=== PATIENT | female | born 1960 | race Caucasian/White ===

== ENCOUNTER 2017-03-03 08:45 | Emergency (ER) | payer MEDICARE, MEDICAID ==
[~2017-03-03 08:45] MED LIST: AMBI10TA PO; AMIT100T6 PO; AMLO5TAB96 PO; ATOR20TA42 PO; CALTTAB5 PO; COMBIGAN OP; FENT50DI TD; HUMALOGP SQ; HYDR-2768; HYDR-3129 PO; LISI-366 PO; METO5TAB PO; PROT40TA PO; TAB-TAB PO
[2017-03-03 08:57] VITALS: BP 163/69; PULSE 79; RESP 20; TEMP 98.3; O2SAT 100
[2017-03-03] MEDS ORDERED: MYCO250C PO (09:06)
[2017-03-03] MEDS ORDERED: MAGN30TA PO (09:06)
[2017-03-03] MEDS ORDERED: SODIUM CHLOR 0.9% 1000 ML INJ 1,000 ML IV SCH (09:06)
[2017-03-03] MEDS ORDERED: HYDR-3583 PO (09:06)
[2017-03-03] MEDS ORDERED: ASPI81CH CHEW (09:06)
[2017-03-03] MEDS ORDERED: TACR1CAP PO (09:06)
[2017-03-03] MEDS ORDERED: PANT40TA3 PO (09:06)
[2017-03-03] MEDS ORDERED: MULT-120 PO (09:06)
[2017-03-03] MEDS ORDERED: ZOLP10TA3 PO (09:06)
[2017-03-03] MEDS ORDERED: COMB0.2S EACH EYE (09:06)
[2017-03-03] MEDS ORDERED: AMIT100T2 PO (09:06)
[2017-03-03] MEDS ORDERED: SIMV40TA PO (09:06)
[2017-03-03] MEDS ORDERED: PRED5TAB PO (09:06)
[2017-03-03] MEDS ORDERED: CALTTAB PO (09:06)
[2017-03-03] MEDS ORDERED: SULF1TAB23 PO (09:06)
[2017-03-03] MEDS ORDERED: CARV25TA PO (09:06)
[2017-03-03] MEDS ORDERED: SODIUM CHLORIDE 0.9% FLUSH 10 ML FLUSH IV FLUSH PRN (09:15)
[2017-03-03] MEDS ORDERED: HYDROmorphone HCL PF 1 MG/ML VIAL IV PUSH ONE (09:15)
[2017-03-03] MEDS ORDERED: METOCLOPRAMIDE HCL 10 MG/2 ML VIAL IV PUSH ONE ×2 (09:15→10:00)
[2017-03-03] MEDS ORDERED: diphenhydrAMINE HCL 50 MG/ML VIAL IV PUSH ONE ×2 (09:15→10:00)
--- NOTE | 2017-03-03 09:16 | PD ---
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 She states that she thinks her gastroparesis is acting up. The last episode was about 8 months ago, she states that she usually follows up with her GI doctor in [place], but is visiting the area currently. She and family states that the medication that works well for this issue is Dilaudid which physician's office and don't give fast enough. She denies any fevers, diarrhea, or any other symptoms. Modifying Factors: None Associated Signs & Symptoms: Nausea, vomiting, abdominal cramping pain Risk Factors: History of gastroparesis, pancreatic and renal transplant PFSH Past Medical History Autoimmune Disease: No Cancer: No High Cholesterol: Yes Chemotherapy: No Chest Pain: No Diabetes: Yes Patient Takes Glucophage: No Endocrine: No Gastrointestinal Disorders: Yes (GASTROPARESIS) Hypertension: Yes Immune Disorder: No Neurologic: No Psychiatric: No Radiation Therapy: No Sickle Cell Disease: No Thyroid Disease: No ?: Not Past Surgical History Abdominal Surgery: No Section: Yes (X 3) Cholecystectomy: Yes Ear Surgery: No Endocrine Surgery: No Eye Surgery: Yes (CATARACT LEFT EYE) Gynecologic Surgery: Yes ( SECTIONX4) Insulin Pump: No Joint Replacement: No Oral Surgery: No Thoracic Surgery: No Other Surgery: Yes (KIDNEY, PANCREAS TRANSPLANT) Social History Alcohol Use: No Tobacco Use: No Substance Use: No Allergies-Medications (Allergen,Severity, Reaction): Coded Allergies: Morphine (Verified Allergy, Unknown, 03/03/17) Reported Meds & Prescriptions Reported Meds & Active Scripts Active Reported Zolpidem (Zolpidem Tartrate) 10 Mg Tab 10 Mg PO HS PRN Amitriptyline (Amitriptyline HCl) 100 Mg Tab 100 Mg PO HS Simvastatin 40 Mg Tab 40 Mg PO HS Combigan Opth Drops (Brimonidine-Timolol Opth Drops) 0.2-0.5% Soln 1 Drop EACH EYE Q12HR Aspirin 81 Mg Chew 81 Mg CHEW DAILY Caltrate 600+D (Calcium Carbonate-Cholecalciferol) 600-800 Mg-Unit Tab 1 Tab PO BID Multivitamin Women (Multiple Vitamins W/ Minerals) 1 Tab Tab 1 Tab PO DAILY Prednisone 5 Mg Tab 5 Mg PO DAILY Hydrocodone-Acetaminophen 10-325 mg Tab 1 Tab PO Q6H PRN Magnesium Elemental (Magnesium) 30 Mg Tab 250 Mg PO DAILY Pantoprazole (Pantoprazole Sodium) 40 Mg Tab 40 Mg PO BID Sulfamethoxazole-Trimethoprim 800-160 Mg Tab 1 Tab PO BID Carvedilol 25 Mg Tab 25 Mg PO BID Mycophenolate (Mycophenolate Mofetil) 250 Mg Cap 360 Mg PO QID Tacrolimus 1 Mg Cap 2 Mg PO Q12H Review of Systems Except as stated in HPI: all other systems reviewed are Neg Physical Exam Narrative GENERAL: Middle age female patient who is currently in moderate distress, retching in the ER. Awake and oriented 3. SKIN: Focused skin assessment warm/dry. HEAD: Atraumatic. Normocephalic. EYES: Pupils equal and round. No scleral icterus. No injection or drainage. ENT: No nasal bleeding or discharge. Mucous membranes pink and moist. NECK: Trachea midline. No JVD. CARDIOVASCULAR: Regular rate and rhythm. No murmur appreciated. RESPIRATORY: No accessory muscle use. Clear to auscultation. Breath sounds equal bilaterally. GASTROINTESTINAL: Abdomen soft, diffuse abdominal tenderness with no point tenderness or guarding or rebound, nondistended. Hepatic and splenic margins not palpable. MUSCULOSKELETAL: No obvious deformities. No clubbing. No cyanosis. No edema. NEUROLOGICAL: Awake and alert. No obvious cranial nerve deficits. Motor grossly within normal limits. Normal speech. PSYCHIATRIC: Appropriate mood and affect; insight and judgment normal. Data Data Last Documented VS Vital Signs Date Time Temp Pulse Resp B/P Pulse Ox O2 Delivery O2 Flow Rate FiO2 03/03/17 10:51 76 20 131/61 96 Nasal Cannula 2 03/03/17 08:57 98.3 Orders Complete Blood Count With Diff (03/03/17 09:06) Comprehensive Metabolic Panel (03/03/17 09:06) Lipase (03/03/17 09:06) Urinalysis - C+S If Indicated (03/03/17 09:06) Iv Access Insert/Monitor (03/03/17 09:06) Ecg Monitoring (03/03/17 09:06) Oximetry (03/03/17 09:06) Sodium Chlor 0.9% 1000 Ml Inj (Ns 1000 M (03/03/17 09:06) Sodium Chloride 0.9% Flush (Ns Flush) (03/03/17 09:15) Metoclopramide Inj (Reglan Inj) (03/03/17 09:15) Diphenhydramine Inj (Benadryl Inj) (03/03/17 09:15) Abdomen, Flat & Upright (03/03/17 09:11) Hydromorphone Pf Inj (Dilaudid Pf Inj) (03/03/17 09:15) Ondansetron Inj (Zofran Inj) (03/03/17 09:30) Metoclopramide Inj (Reglan Inj) (03/03/17 10:00) Diphenhydramine Inj (Benadryl Inj) (03/03/17 10:00) Hydromorphone Pf Inj (Dilaudid Pf Inj) (03/03/17 10:00) Labs Laboratory Tests Test 03/03/17 03/03/17 09:20 10:50 White Blood Count 5.9 TH/MM3 Red Blood Count 4.16 MIL/MM3 Hemoglobin 12.0 GM/DL Hematocrit 35.8 % Mean Corpuscular Volume 85.9 FL Mean Corpuscular Hemoglobin 28.9 PG Mean Corpuscular Hemoglobin 33.6 % Concent Red Cell Distribution Width 12.1 % Platelet Count 201 TH/MM3 Mean Platelet Volume 8.2 FL Neutrophils (%) (Auto) 77.2 % Lymphocytes (%) (Auto) 10.5 % Monocytes (%) (Auto) 10.2 % Eosinophils (%) (Auto) 1.7 % Basophils (%) (Auto) 0.4 % Neutrophils # (Auto) 4.6 TH/MM3 Lymphocytes # (Auto) 0.6 TH/MM3 Monocytes # (Auto) 0.6 TH/MM3 Eosinophils # (Auto) 0.1 TH/MM3 Basophils # (Auto) 0.0 TH/MM3 CBC Comment DIFF FINAL Differential Comment Sodium Level 140 MEQ/L Potassium Level 4.5 MEQ/L Chloride Level 107 MEQ/L Carbon Dioxide Level 26.4 MEQ/L Anion Gap 7 MEQ/L Blood Urea Nitrogen 13 MG/DL Creatinine 0.79 MG/DL Estimat Glomerular Filtration 76 ML/MIN Rate Random Glucose 101 MG/DL Calcium Level 9.0 MG/DL Total Bilirubin 0.4 MG/DL Aspartate Amino Transf 31 U/L (AST/SGOT) Alanine Aminotransferase 29 U/L (ALT/SGPT) Alkaline Phosphatase 90 U/L Total Protein 6.6 GM/DL Albumin 3.2 GM/DL Lipase 168 U/L Urine Collection Type CLEAN CATCH Urine Color YELLOW Urine Turbidity CLEAR Urine pH 7.0 Urine Specific Jachin 1.024 Urine Protein NEG mg/dL Urine Glucose (UA) NEG mg/dL Urine Ketones NEG mg/dL Urine Occult Blood TRACE Urine Nitrite NEG Urine Bilirubin NEG Urine Leukocyte Esterase NEG Urine Squamous Epithelial 0-5 /hpf Cells Microscopic Urinalysis Comment CULT NOT INDICATED MDM Medical Decision Making Medical Screen Exam Complete: Yes Emergency Medical Condition: Yes Medical Record Reviewed: Yes Interpretation(s) Laboratory Tests Test 03/03/17 03/03/17 09:20 10:50 Neutrophils (%) (Auto) 77.2 % (16.0-70.0) Monocytes (%) (Auto) 10.2 % (0.0-8.0) Lymphocytes # (Auto) 0.6 TH/MM3 (1.0-4.8) Estimat Glomerular Filtration 76 ML/MIN (>89) Rate Albumin 3.2 GM/DL (3.4-5.0) Urine Occult Blood TRACE (NEG) Last 24 hours Impressions Abdomen X-Ray 03/03/17 0911 Signed Impressions: Service Date/Time: Friday, March 03, 2017 09:41 - CONCLUSION: Moderate stool in the colon especially the transverse colon. Deni Callahan MD Differential Diagnosis Nausea, vomiting, abdominal cramping painsgastroparesis versus obstruction versus gastroenteritis versus dehydration versus electrolyte abnormalities versus opiate withdrawals Narrative Course Patient was initially given IV fluids, Zofran, Dilaudid 0.5 mg in the ER. However, patient continues to moan due to discomfort and pain. Patient's sister states that the patient gets much larger doses of Dilaudid usually in order to control her issues. At this point, 2 mg of Dilaudid was also ordered for the patient for pain control. On reevaluation at 10:30 AM, patient is feeling much improved. Reevaluation of the abdomen shows a fairly benign abdomen. Lab work returned not showing significant leukocytosis, signs of metabolic issues or dehydration. Her vital signs remained stable in the ER. X-ray did not show any signs of obstruction or other signs of acute issues. At this point, I have talked to the patient regarding findings and patient states she is feeling much improved. Considering previous history of gastroparesis, I suspect gastroparesis in this case. I have talked to the patient regarding whether we should obtain further CT Scanning. Patient states that she is comfortable with deferring at this point. Other acute intra-abdominal processes cannot be ruled out but exam and lab work did not indicate any signs of other acute processes. My plan would be to release the patient with symptomatic relief or nausea and vomiting. Return for any worsening in symptoms as needed. The plan has discussed with her and she states understanding. Procedures Procedure Narrative Right external jugular IV accesspatient is placed in Trendelenburg position and right lateral neck area was cleaned and prepped with ChloraPrep, 20-gauge IV placed into the right EJ without issues. Area was covered with Tegaderm. Diagnosis Primary Impression: GASTROPARESIS Additional Impression: Abdominal pain Med/Other Pt SpecificInfo: Prescription(s) given Scripts Metoclopramide (Reglan)10 Mg Tab10 Mg PO QID PRN (NAUSEA OR VOMITING) #14 TAB Ref 0 Prov:Lizzy Casillas MD 03/03/17 Disposition: 01 DISCHARGE HOME Condition: Stable Lizzy Casillas MD Mar 03, 2017 09:16
[2017-03-03] MEDS ORDERED: ONDANSETRON HCL 4 MG/2 ML VIAL IM ONE (09:30)
[2017-03-03 09:31] VITALS: O2SAT 96
[2017-03-03 09:38] LABS: AUTOMATED NEUTROPHIL # 4.6 TH/MM3 (1.8-7.7); BASOPHIL % 0.4 % (0.0-2.0); EOSINOPHIL # 0.1 TH/MM3 (0-0.4); EOSINOPHIL % 1.7 % (0.0-4.0); HEMATOCRIT 35.8 % (35.0-46.0); HEMO FLAGS DIFF FINAL; LYMPH % 10.5 % (9.0-44.0); LYMPHOCYTE # 0.6 TH/MM3 (1.0-4.8); MEAN CELL VOLUME 85.9 FL (80.0-100.0); MEAN CORPUSCULAR HEMOGLOBIN 28.9 PG (27.0-34.0); MEAN CORPUSCULAR HGB CONC 33.6 % (32.0-36.0); MONO % 10.2 % (0.0-8.0); NEUT % 77.2 % (16.0-70.0); PLATELET COUNT 201 TH/MM3 (150-450); RED BLOOD COUNT 4.16 MIL/MM3 (4.00-5.30); RED CELL DISTRIBUTION WIDTH 12.1 % (11.6-17.2); WHITE BLOOD COUNT 5.9 TH/MM3 (4.0-11.0)
[2017-03-03 09:51] LABS: BICARBONATE 26.4 MEQ/L (21.0-32.0); BLOOD UREA NITROGEN 13 MG/DL (7-18)
[2017-03-03 09:54] LABS: ALT (GPT) 29 U/L (10-53); AST (GOT) 31 U/L (15-37); GLOMERULAR FILTRATION RATE 76 ML/MIN (>89)
[2017-03-03 09:55] LABS: ANION GAP 7 MEQ/L (5-15); CHLORIDE 107 MEQ/L (98-107); POTASSIUM 4.5 MEQ/L (3.5-5.1); SODIUM (NA) 140 MEQ/L (136-145)
[2017-03-03 09:59] LABS: TOTAL BILIRUBIN ADULT 0.4 MG/DL (0.2-1.0)
[2017-03-03] MEDS ORDERED: HYDROmorphone HCL PF 2 MG/ML VIAL IV PUSH ONE (10:00)
[2017-03-03 10:01] VITALS: BP 151/76; PULSE 85; RESP 20; O2SAT 100
[2017-03-03 10:01] LABS: ALKALINE PHOSPHATASE 90 U/L (45-117)
--- NOTE | 2017-03-03 10:09 | RADHPO ---
EXAM DATE/TIME: 03/03/2017 09:41 [facility] COMPARISON: ABDOMEN FLAT & UPRIGHT, November 05, 2012, 9:36. INDICATIONS : abdomen pain and vomiting today MEDICAL HISTORY : None. SURGICAL HISTORY : Kidney and pancreas transplant ENCOUNTER: Initial ACUITY: 1 day PAIN SCORE: 10/10 LOCATION: Bilateral abdomen FINDINGS: Supine and upright views of the abdomen were performed. The abdominal bowel gas pattern is normal. No air fluid levels are seen. There is a moderate amount of stool especially in the transverse colon . Calcifications are seen in the left pelvis likely related to phleboliths. Vascular calcifications a re seen in the right lower quadrant. There is degenerative change of the lower lumbar spine. No evide nce of free intraperitoneal gas. Clips are seen in the right upper quadrant. CONCLUSION: Moderate stool in the colon especially the transverse colon. Deni Callahan MD on March 03, 2017 at 10:05 Board Certified Radiologist. This report was verified electronically.
[2017-03-03 10:51] VITALS: BP 131/61; PULSE 76; RESP 20; O2SAT 96
[2017-03-03 11:04] LABS: BLOOD, URINE TRACE (NEG); GLUCOSE,URINE NEG (NEG); KETONE, URINE NEG (NEG); NITRITE,URINE NEG (NEG)
[2017-03-03 11:10] LABS: COMMENT (UR) CULT NOT INDICATED; CULTURE IF INDICATED CULT NOT INDICATED; METHOD OF COLLECTION CLEAN CATCH; SQUAMOUS EPITHELIAL CELL URINE 0-5 /hpf (0-5); URINE COLOR YELLOW (YELLW/STRAW)
[2017-03-03] MEDS ORDERED: REGL10TA5 PO (11:19)
== END 2017-03-03 11:34 | disposition home or self-care (01) ==
LOC: PHED 08:45
DX: K31.84 Gastroparesis (principal); R10.9 Unspecified abdominal pain; E11.9 Type 2 diabetes mellitus without complications; E78.00 Pure hypercholesterolemia, unspecified; I10 Essential (primary) hypertension; Z94.0 Kidney transplant status; Z94.83 Pancreas transplant status
CPT/HCPCS: 74020; 80053; 81001; 83690; 85025; 96361; 96372; 96374; 96375; 96376; 99284; J1170; J1200; J2405; J2765; J7030

== ENCOUNTER 2017-03-06 10:50 | Emergency (ER) | payer MEDICARE, MEDICAID ==
[~2017-03-06] VITALS: Ht 154.9 cm; Wt 81.0 kg
[~2017-03-06 10:50] MED LIST changes: -AMBI10TA PO; +AMIT100T2 PO; -AMIT100T6 PO; -AMLO5TAB96 PO; +ASPI81CH CHEW; -ATOR20TA42 PO; +CALTTAB PO; -CALTTAB5 PO; +CARV25TA PO; +COMB0.2S EACH EYE; -COMBIGAN OP; -FENT50DI TD; -HUMALOGP SQ; -HYDR-2768; -HYDR-3129 PO; +HYDR-3583 PO; -LISI-366 PO; +MAGN30TA PO; -METO5TAB PO; +MULT-120 PO; +MYCO250C PO; +PANT40TA3 PO; +PRED5TAB PO; -PROT40TA PO; +REGL10TA5 PO; +SIMV40TA PO; +SULF1TAB23 PO; -TAB-TAB PO; +TACR1CAP PO; +ZOLP10TA3 PO
[2017-03-06 10:54] VITALS: BP 154/87; PULSE 79; RESP 18; TEMP 98.4; O2SAT 98
[2017-03-06] MEDS ORDERED: SODIUM CHLOR 0.9% 1000 ML INJ 1,000 ML IV SCH (11:10)
[2017-03-06] MEDS ORDERED: FAMOTIDINE 20 MG/2 ML VIAL IV PUSH ONE (11:15)
[2017-03-06] MEDS ORDERED: SODIUM CHLORIDE 0.9% FLUSH 10 ML FLUSH IV FLUSH PRN (11:15)
[2017-03-06] MEDS ORDERED: ONDANSETRON HCL 4 MG/2 ML VIAL IVP ONE (11:15)
[2017-03-06] MEDS ORDERED: HYDROmorphone HCL PF 2 MG/ML VIAL IVS ONE (11:15)
--- NOTE | 2017-03-06 11:20 | PD ---
HPI Chief Complaint: Abdominal Pain Time Seen by Provider: 11:04 Travel History International Travel<30 days: No Contact w/Intl Traveler<30days: No Traveled to known affect area: No History of Present Illness HPI Patient is a 56-year-old female with history of diabetes, gastroparesis, history of pancreatic and renal transplant currently on Tacrolimus 2mg BID, presents to ER for evaluation of "gastroparesis pain." Patient reports that ever since her transplant surgery, she has developed gastroparesis. Reports that when she has these "flair up," only high dose dilaudid helps with her symptoms. Patient reports that she usually gets gastroporesis pains every 8 months and needs to be treated with high dose pain medications which usually resolves her symptoms. Patient reports that she was seen at this emergency room 3 days ago with similar symptoms. Patient was given 2 mg of IV Dilaudid, reports that after she was given his pain medication, her symptoms went away. Patient reports that she woke up this morning around 8 AM with intractable nausea and vomiting. Patient reports that symptoms are similar to her gastroparesis abdominal pain. Patient reports that she thinks that she may have been something that irritated her stomach yesterday as she spent the day at [facility]. Patient denies any fevers or chills. Patient denies any constipation or diarrhea. Patient reports that her pain is similar to her previous episodes. Patient refusing CT imaging her abdomen pelvis as patient reports that her pain is chronic in nature. PFSH Past Medical History Autoimmune Disease: No Cancer: No High Cholesterol: Yes Chemotherapy: No Chest Pain: No Diabetes: Yes Patient Takes Glucophage: Yes Endocrine: No Gastrointestinal Disorders: Yes (GASTROPARESIS) Hypertension: Yes Immune Disorder: No Neurologic: No Psychiatric: No Radiation Therapy: No Sickle Cell Disease: No Thyroid Disease: No Tetanus Vaccination: < 5 Years Influenza Vaccination: Yes ?: Not Past Surgical History Abdominal Surgery: No Section: Yes (X 3) Cholecystectomy: Yes Ear Surgery: No Endocrine Surgery: No Eye Surgery: Yes (CATARACT LEFT EYE) Gynecologic Surgery: Yes ( SECTIONX4) Insulin Pump: No Joint Replacement: No Oral Surgery: No Thoracic Surgery: No Other Surgery: Yes (KIDNEY, PANCREAS TRANSPLANT) Social History Alcohol Use: No Tobacco Use: No Substance Use: No Allergies-Medications (Allergen,Severity, Reaction): Coded Allergies: Morphine (Verified Allergy, Unknown, 03/06/17) Reported Meds & Prescriptions Reported Meds & Active Scripts Active Reglan (Metoclopramide HCl) 10 Mg Tab 10 Mg PO QID PRN Reported Zolpidem (Zolpidem Tartrate) 10 Mg Tab 10 Mg PO HS PRN Amitriptyline (Amitriptyline HCl) 100 Mg Tab 100 Mg PO HS Simvastatin 40 Mg Tab 40 Mg PO HS Combigan Opth Drops (Brimonidine-Timolol Opth Drops) 0.2-0.5% Soln 1 Drop EACH EYE Q12HR Aspirin 81 Mg Chew 81 Mg CHEW DAILY Caltrate 600+D (Calcium Carbonate-Cholecalciferol) 600-800 Mg-Unit Tab 1 Tab PO BID Multivitamin Women (Multiple Vitamins W/ Minerals) 1 Tab Tab 1 Tab PO DAILY Prednisone 5 Mg Tab 5 Mg PO DAILY Hydrocodone-Acetaminophen 10-325 mg Tab 1 Tab PO Q6H PRN Magnesium Elemental (Magnesium) 30 Mg Tab 250 Mg PO DAILY Pantoprazole (Pantoprazole Sodium) 40 Mg Tab 40 Mg PO BID Sulfamethoxazole-Trimethoprim 800-160 Mg Tab 1 Tab PO BID Carvedilol 25 Mg Tab 25 Mg PO BID Mycophenolate (Mycophenolate Mofetil) 250 Mg Cap 360 Mg PO QID Tacrolimus 1 Mg Cap 2 Mg PO Q12H Review of Systems General / Constitutional: No: Fever, Chills Eyes: No: Visual changes HENT: No: Headaches Cardiovascular: No: Chest Pain or Discomfort Respiratory: No: Shortness of Breath Gastrointestinal: Positive: Nausea, Vomiting, Abdominal Pain, No: Diarrhea Genitourinary: No: Dysuria Musculoskeletal: No: Pain Skin: No Rash Neurologic: No: Weakness Psychiatric: No: Depression Endocrine: No: Polydipsia Hematologic/Lymphatic: No: Easy Bruising Physical Exam Narrative GENERAL: moderate distress, patient vomiting.retching on evaluation, SKIN: Focused skin assessment warm/dry. HEAD: Atraumatic. Normocephalic. EYES: Pupils equal and round. No scleral icterus. No injection or drainage. ENT: No nasal bleeding or discharge. Mucous membranes pink and moist. NECK: Trachea midline. No JVD. CARDIOVASCULAR: Regular rate and rhythm. No murmur appreciated. RESPIRATORY: No accessory muscle use. Clear to auscultation. Breath sounds equal bilaterally. GASTROINTESTINAL: Abdomen soft, non-tender, nondistended. Hepatic and splenic margins not palpable. MUSCULOSKELETAL: No obvious deformities. No clubbing. No cyanosis. No edema. NEUROLOGICAL: Awake and alert. No obvious cranial nerve deficits. Motor grossly within normal limits. Normal speech. PSYCHIATRIC: Appropriate mood and affect; insight and judgment normal. Data Data Last Documented VS Vital Signs Date Time Temp Pulse Resp B/P Pulse Ox O2 Delivery O2 Flow Rate FiO2 03/06/17 12:30 86 14 150/65 97 Room Air 03/06/17 10:54 98.4 Orders Complete Blood Count With Diff (03/06/17 11:10) Comprehensive Metabolic Panel (03/06/17 11:10) Lipase (03/06/17 11:10) Prothrombin Time / Inr (Pt) (03/06/17 11:10) Act Partial Throm Time (Ptt) (03/06/17 11:10) Iv Access Insert/Monitor (03/06/17 11:10) Ecg Monitoring (03/06/17 11:10) Oximetry (03/06/17 11:10) Hydromorphone Pf Inj (Dilaudid Pf Inj) (03/06/17 11:15) Ondansetron Inj (Zofran Inj) (03/06/17 11:15) Sodium Chlor 0.9% 1000 Ml Inj (Ns 1000 M (03/06/17 11:10) Sodium Chloride 0.9% Flush (Ns Flush) (03/06/17 11:15) Famotidine Inj (Pepcid Inj) (03/06/17 11:15) Abdomen, Kub Only (03/06/17 11:10) Labs Laboratory Tests Test 03/06/17 03/06/17 11:20 11:25 White Blood Count 8.3 TH/MM3 Red Blood Count 4.61 MIL/MM3 Hemoglobin 13.2 GM/DL Hematocrit 40.1 % Mean Corpuscular Volume 87.0 FL Mean Corpuscular Hemoglobin 28.7 PG Mean Corpuscular Hemoglobin 32.9 % Concent Red Cell Distribution Width 12.8 % Platelet Count 205 TH/MM3 Mean Platelet Volume 8.7 FL Neutrophils (%) (Auto) 81.8 % Lymphocytes (%) (Auto) 11.4 % Monocytes (%) (Auto) 5.9 % Eosinophils (%) (Auto) 0.6 % Basophils (%) (Auto) 0.3 % Neutrophils # (Auto) 6.9 TH/MM3 Lymphocytes # (Auto) 0.9 TH/MM3 Monocytes # (Auto) 0.5 TH/MM3 Eosinophils # (Auto) 0.0 TH/MM3 Basophils # (Auto) 0.0 TH/MM3 CBC Comment DIFF FINAL Differential Comment Sodium Level 141 MEQ/L Potassium Level 4.4 MEQ/L Chloride Level 107 MEQ/L Carbon Dioxide Level 26.4 MEQ/L Anion Gap 8 MEQ/L Blood Urea Nitrogen 11 MG/DL Creatinine 0.92 MG/DL Estimat Glomerular Filtration 64 ML/MIN Rate Random Glucose 107 MG/DL Calcium Level 9.3 MG/DL Total Bilirubin 0.3 MG/DL Aspartate Amino Transf 28 U/L (AST/SGOT) Alanine Aminotransferase 31 U/L (ALT/SGPT) Alkaline Phosphatase 106 U/L Total Protein 7.1 GM/DL Albumin 3.6 GM/DL Lipase 167 U/L Prothrombin Time 11.1 SEC Prothromb Time International 1.0 RATIO Ratio Activated Partial 25.9 SEC Thromboplast Time MDM Medical Decision Making Medical Screen Exam Complete: Yes Emergency Medical Condition: Yes Interpretation(s) Vital Signs Date Time Temp Pulse Resp B/P Pulse Ox O2 Delivery O2 Flow Rate FiO2 03/06/17 10:54 98.4 79 18 154/87 98 Differential Diagnosis Gastroparesis, cholecystitis, viral infection, gastroenteritis, UTI, small bowel obstruction, electrolyte abnormalities, opiate withdrawal. Narrative Course Patient is a 56-year-old female who presents to emergency room with complaints of gastroparesis flareup. Patient reports that she woke up around 8 AM with intractable nausea, vomiting. Patient reports that symptoms are similar to her normal gastroparesis pain. Patient requesting high dose pain medications and IVF at this time for symptomatic relief. Patient was placed on monitoring manager. Lab work and xray of abdomen ordered. Vital Signs Date Time Temp Pulse Resp B/P Pulse Ox O2 Delivery O2 Flow Rate FiO2 03/06/17 12:01 16 03/06/17 11:35 96 Room Air 03/06/17 10:54 98.4 79 18 154/87 98 CBC & BMP Diagram 03/06/17 11:20 Patient resting on stretcher comfortable and in no acute distress. Patient reports that she is feeling much better at this time. Plan to discharge patient to home with outpatient referrals. xray of abdomen: interval improvemnt in bowel gas patter with mild decrease in stool Patient reports that she has complete resolution of symptoms at this time.. patient refusing further imaging at this time and further workup as she has complete resolution of symptoms. Patient will follow up with pcp and will return to ER as needed. Signs and symptoms of when to return to ER reviewed with patient in detail. Signs and symptoms of acute abdomen reviewed with patient and her family member in detail. Procedures Procedure Narrative Right sided external jugular IV access: Patient was placed in Trendelenburg position and right lateral neck was cleaned and prepped using ChloraPrep. A 20-gauge IV needle was placed to the right external jugular vein after first attempt. Area was dressed and covered with Tegaderm. Patient tolerated procedure well. Diagnosis Primary Impression: Abdominal pain Qualified Code: R10.84 - Generalized abdominal pain Additional Impression: Gastroparesis Patient Instructions: Narcotic given in the ED, General Instructions Additional Instructions: Please return to ER as needed Please follow up with your primary care doctor as well as your urology physician as soon as possible Disposition: 01 DISCHARGE HOME Condition: Stable Yeimi Santana DO Mar 06, 2017 11:20 Yeimi Santana DO Mar 06, 2017 11:20
[2017-03-06 11:26] LABS: AUTOMATED NEUTROPHIL # 6.9 TH/MM3 (1.8-7.7); BASOPHIL % 0.3 % (0.0-2.0); EOSINOPHIL % 0.6 % (0.0-4.0); HEMATOCRIT 40.1 % (35.0-46.0); HEMO FLAGS DIFF FINAL; LYMPH % 11.4 % (9.0-44.0); LYMPHOCYTE # 0.9 TH/MM3 (1.0-4.8); MEAN CORPUSCULAR HEMOGLOBIN 28.7 PG (27.0-34.0); MEAN CORPUSCULAR HGB CONC 32.9 % (32.0-36.0); MONO % 5.9 % (0.0-8.0); NEUT % 81.8 % (16.0-70.0); PLATELET COUNT 205 TH/MM3 (150-450); RED BLOOD COUNT 4.61 MIL/MM3 (4.00-5.30); RED CELL DISTRIBUTION WIDTH 12.8 % (11.6-17.2); WHITE BLOOD COUNT 8.3 TH/MM3 (4.0-11.0)
[2017-03-06 11:35] VITALS: O2SAT 96
[2017-03-06 11:39] LABS: CHLORIDE 107 MEQ/L (98-107); POTASSIUM 4.4 MEQ/L (3.5-5.1); SODIUM (NA) 141 MEQ/L (136-145)
[2017-03-06 11:43] LABS: ANION GAP 8 MEQ/L (5-15); BICARBONATE 26.4 MEQ/L (21.0-32.0); BLOOD UREA NITROGEN 11 MG/DL (7-18)
[2017-03-06 11:43] LABS: APTT (PATIENT) 25.9 SEC (24.3-30.1); PROTHROMBIN TIME - PATIENT 11.1 SEC (9.8-11.6)
[2017-03-06 11:46] LABS: ALT (GPT) 31 U/L (10-53); AST (GOT) 28 U/L (15-37); GLOMERULAR FILTRATION RATE 64 ML/MIN (>89)
[2017-03-06 11:47] LABS: TOTAL BILIRUBIN ADULT 0.3 MG/DL (0.2-1.0)
[2017-03-06 11:48] LABS: ALKALINE PHOSPHATASE 106 U/L (45-117)
--- NOTE | 2017-03-06 12:27 | RADHPO ---
EXAM DATE/TIME: 03/06/2017 11:42 [facility] COMPARISON: ABDOMEN FLAT & UPRIGHT, March 03, 2017, 9:41. INDICATIONS : Reoccurring abdominal pain and vomiting for 3 days. MEDICAL HISTORY : Hypertension. Diabetes mellitus type II. Gastroparesis. SURGICAL HISTORY : Cholecystectomy. section. Kidney/ pancreas transplant. ENCOUNTER: [facility] ACUITY: 3 days PAIN SCORE: 8/10 LOCATION: Abdomen. FINDINGS: Supine view of the abdomen was performed. There has been interval decrease in the amount of stool pre sent with moderate residual in the transverse colon. There are multiple calcified phleboliths again n oted in the pelvis. The patient is status post cholecystectomy.. No abnormal masses, calcifications, or organomegaly is seen. The osseous structures are unremarkable. CONCLUSION: Interval improvement in bowel gas pattern with mild decrease in stool. Cj Guido MD on March 06, 2017 at 12:24 Board Certified Radiologist. This report was verified electronically.
[2017-03-06 12:30] VITALS: BP 150/65; PULSE 86; RESP 14; O2SAT 97
[2017-03-06] MEDS ORDERED: REGL10TA5 PO (18:23)
== END 2017-03-06 13:00 | disposition home or self-care (01) ==
LOC: PHED 10:50
DX: R10.84 Generalized abdominal pain (principal); K31.84 Gastroparesis; E78.00 Pure hypercholesterolemia, unspecified; E11.9 Type 2 diabetes mellitus without complications; I10 Essential (primary) hypertension; Z79.84 Long term (current) use of oral hypoglycemic drugs; Z94.0 Kidney transplant status; Z94.83 Pancreas transplant status
CPT/HCPCS: 74000; 80053; 83690; 85025; 85610; 85730; 96361; 96374; 96375; 99284; J1170; J2405; J7030

== ENCOUNTER 2017-03-06 15:50 | Emergency (ER) | payer MEDICARE, MEDICAID ==
[~2017-03-06] VITALS: Ht 154.9 cm; Wt 82.0 kg
[2017-03-06 15:51] VITALS: PULSE 88; RESP 22; TEMP 97.5; O2SAT 98
[2017-03-06 16:10] VITALS: RESP 15; O2SAT 97
[2017-03-06] MEDS ORDERED: SODIUM CHLOR 0.9% 1000 ML INJ 1,000 ML IV SCH (16:16)
--- NOTE | 2017-03-06 16:23 | PD ---
HPI Chief Complaint: Abdominal Pain Time Seen by Provider: 16:18 Travel History International Travel<30 days: No Contact w/Intl Traveler<30days: No Traveled to known affect area: No History of Present Illness HPI Is a 56-year-old female with a history of renal transplant and gastroparesis presents to the emergency department for evaluation of nausea vomiting and "gastroparesis pain. She is accompanied by her sister who gives the majority of the history. On arrival the patient is grunting appears uncomfortable. Patient was here earlier today and was seen by Dr. Santana and was given multiple medications including Dilaudid. Dr. Santana and recommended the patient have a CAT scan at that time but the patient had refused. Patient also had an visit earlier in this week at which time she was also given Dilaudid. In fact the sister says to me that the only thing that works for the patient is 2 mg Dilaudid IV. She states that usually she has about 1 flare a year but because they're visiting here from out of town to think that she ate something strange when they were in [place] the other day. She states typically 2 mg of Dilaudid IV hold her for a year. PFSH Past Medical History Autoimmune Disease: No Cancer: No High Cholesterol: Yes Chemotherapy: No Chest Pain: No Diabetes: Yes Endocrine: No Gastrointestinal Disorders: Yes (GASTROPARESIS) Hypertension: Yes Immune Disorder: No Neurologic: No Psychiatric: No Radiation Therapy: No Sickle Cell Disease: No Thyroid Disease: No Past Surgical History Abdominal Surgery: No Section: Yes (X 3) Cholecystectomy: Yes Ear Surgery: No Endocrine Surgery: No Eye Surgery: Yes (CATARACT LEFT EYE) Gynecologic Surgery: Yes ( SECTIONX4) Insulin Pump: No Joint Replacement: No Oral Surgery: No Thoracic Surgery: No Other Surgery: Yes (KIDNEY, PANCREAS TRANSPLANT) Social History Alcohol Use: No Tobacco Use: No Substance Use: No Allergies-Medications (Allergen,Severity, Reaction): Coded Allergies: Morphine (Verified Allergy, Unknown, 03/06/17) Reported Meds & Prescriptions Reported Meds & Active Scripts Active Reglan (Metoclopramide HCl) 10 Mg Tab 10 Mg PO QID PRN Reglan (Metoclopramide HCl) 10 Mg Tab 10 Mg PO QID PRN Reported Zolpidem (Zolpidem Tartrate) 10 Mg Tab 10 Mg PO HS PRN Amitriptyline (Amitriptyline HCl) 100 Mg Tab 100 Mg PO HS Simvastatin 40 Mg Tab 40 Mg PO HS Combigan Opth Drops (Brimonidine-Timolol Opth Drops) 0.2-0.5% Soln 1 Drop EACH EYE Q12HR Aspirin 81 Mg Chew 81 Mg CHEW DAILY Caltrate 600+D (Calcium Carbonate-Cholecalciferol) 600-800 Mg-Unit Tab 1 Tab PO BID Multivitamin Women (Multiple Vitamins W/ Minerals) 1 Tab Tab 1 Tab PO DAILY Prednisone 5 Mg Tab 5 Mg PO DAILY Hydrocodone-Acetaminophen 10-325 mg Tab 1 Tab PO Q6H PRN Magnesium Elemental (Magnesium) 30 Mg Tab 250 Mg PO DAILY Pantoprazole (Pantoprazole Sodium) 40 Mg Tab 40 Mg PO BID Sulfamethoxazole-Trimethoprim 800-160 Mg Tab 1 Tab PO BID Carvedilol 25 Mg Tab 25 Mg PO BID Mycophenolate (Mycophenolate Mofetil) 250 Mg Cap 360 Mg PO QID Tacrolimus 1 Mg Cap 2 Mg PO Q12H Review of Systems Except as stated in HPI: all other systems reviewed are Neg Physical Exam Narrative GENERAL: wd wn obese moaning in stretcher SKIN: Warm and dry. HEAD: Atraumatic. Normocephalic. EYES: Pupils equal and round. No scleral icterus. No injection or drainage. ENT: No nasal bleeding or discharge. Mucous membranes pink and moist. NECK: Trachea midline. No JVD. CARDIOVASCULAR: Regular rate and rhythm. RESPIRATORY: No accessory muscle use. Clear to auscultation. Breath sounds equal bilaterally. GASTROINTESTINAL: Abdomen soft, non-tender, nondistended. Hepatic and splenic margins not palpable. benign abdomen. MUSCULOSKELETAL: Extremities without clubbing, cyanosis, or edema. No obvious deformities. NEUROLOGICAL: Awake and alert. No obvious cranial nerve deficits. Motor grossly within normal limits. Five out of 5 muscle strength in the arms and legs. Normal speech. PSYCHIATRIC: Appropriate mood and affect; insight and judgment normal. Data Data Last Documented VS Vital Signs Date Time Temp Pulse Resp B/P Pulse Ox O2 Delivery O2 Flow Rate FiO2 03/06/17 18:33 71 15 134/79 97 03/06/17 15:51 97.5 Orders Complete Blood Count With Diff (03/06/17 16:16) Comprehensive Metabolic Panel (03/06/17 16:16) Lipase (03/06/17 16:16) Lactic Acid (03/06/17 16:16) Iv Access Insert/Monitor (03/06/17 16:16) Ecg Monitoring (03/06/17 16:16) Oximetry (03/06/17 16:16) Sodium Chlor 0.9% 1000 Ml Inj (Ns 1000 M (03/06/17 16:16) Sodium Chloride 0.9% Flush (Ns Flush) (03/06/17 16:30) Ketorolac Inj (Toradol Inj) (03/06/17 16:30) Metoclopramide Inj (Reglan Inj) (03/06/17 16:30) Diphenhydramine Inj (Benadryl Inj) (03/06/17 16:30) Ct Abd/Pel W/O Iv Contrast (03/06/17 ) Hydromorphone Pf Inj (Dilaudid Pf Inj) (03/06/17 18:00) Labs Laboratory Tests Test 03/06/17 16:35 White Blood Count 5.7 TH/MM3 Red Blood Count 4.26 MIL/MM3 Hemoglobin 12.0 GM/DL Hematocrit 36.5 % Mean Corpuscular Volume 85.5 FL Mean Corpuscular Hemoglobin 28.2 PG Mean Corpuscular Hemoglobin 32.9 % Concent Red Cell Distribution Width 12.6 % Platelet Count 203 TH/MM3 Mean Platelet Volume 8.6 FL Neutrophils (%) (Auto) 85.0 % Lymphocytes (%) (Auto) 11.4 % Monocytes (%) (Auto) 2.8 % Eosinophils (%) (Auto) 0.0 % Basophils (%) (Auto) 0.8 % Neutrophils # (Auto) 4.8 TH/MM3 Lymphocytes # (Auto) 0.7 TH/MM3 Monocytes # (Auto) 0.2 TH/MM3 Eosinophils # (Auto) 0.0 TH/MM3 Basophils # (Auto) 0.0 TH/MM3 CBC Comment DIFF FINAL Differential Comment Sodium Level 138 MEQ/L Potassium Level 4.5 MEQ/L Chloride Level 104 MEQ/L Carbon Dioxide Level 25.9 MEQ/L Anion Gap 8 MEQ/L Blood Urea Nitrogen 9 MG/DL Creatinine 0.82 MG/DL Estimat Glomerular Filtration 73 ML/MIN Rate Random Glucose 125 MG/DL Lactic Acid Level 0.9 mmol/L Calcium Level 8.8 MG/DL Total Bilirubin 0.4 MG/DL Aspartate Amino Transf 36 U/L (AST/SGOT) Alanine Aminotransferase 31 U/L (ALT/SGPT) Alkaline Phosphatase 95 U/L Total Protein 6.8 GM/DL Albumin 3.3 GM/DL Lipase 122 U/L MDM Medical Decision Making Medical Screen Exam Complete: Yes Emergency Medical Condition: Yes Differential Diagnosis Abdominal pain, gastroparesis, kidney failure, electrolyte abnormality, Narrative Course Patient was roomed in the emergency department, she is grunting and appears mildly uncomfortable. Review of her records show that her labs earlier today were within normal limits. She did agree to a CAT scan without IV contrast given a history of kidney transplant. Patient was given Reglan as well as Benadryl normal saline. She has not had any emesis in the emergency department. She has waxing and waning periods of grunting. Patient's sister reports the nursing desk several times stating that the only thing that worked for the patient is IV Dilaudid. I counseled the patient and her sister multiple times that my impression of this patient's returning to the ER is that Dilaudid is making her worse. Her sister insists that the Dilaudid will make her better and that she will be a different person. I recommend that even if the patient get a dose of IV Dilaudid that she be admitted to the hospital as this may just mask the pain. The daughter and the patient are extremely reluctant as a visiting on vacation and her son is leaving tomorrow and the patient is supposed to leave the day afterwards. Even though I discussed that the Dilaudid is known to make gastroparesis worse sister is insisting that I give a dose. Because the pain is severe according to the patient, a Dose of IV Dilaudid was ordered. immediately following dose of dilaudid the patients pain is relieved. i still recommended that she be admitted for intractable abdominal pain but they declined. a formal ama paper was signed ". they stated they lost previous reglan script and one was wrotten for them. they were welcomed to return at any time. Procedures Procedure Narrative Ultrasound-guided IV: 20-gauge was inserted under ultrasound guidance into a deep vein on the right forearm just distal to the antecubital fossa. dark red blood. This passed off to nursing to secure an draw blood. Diagnosis Primary Impression: Abdominal pain Qualified Code: R10.9 - Abdominal pain, unspecified location Additional Instructions: Follow-up with your regular physician as soon as possible. Recommended avoiding opiate pain medications. If you're pain returns she may return to the emergency Department at a time for another evaluation. Med/Other Pt SpecificInfo: Prescription(s) given Scripts Metoclopramide (Reglan)10 Mg Tab10 Mg PO QID PRN (NAUSEA) #14 TAB Ref 0 Prov:Darin Casanova MD 03/06/17 Disposition: 07 AGAINST MEDICAL ADVICE Condition: Stable Darin Casanova MD Mar 06, 2017 16:23
[2017-03-06] MEDS ORDERED: diphenhydrAMINE HCL 50 MG/ML VIAL IV PUSH ONE (16:30)
[2017-03-06] MEDS ORDERED: SODIUM CHLORIDE 0.9% FLUSH 10 ML FLUSH IV FLUSH PRN (16:30)
[2017-03-06] MEDS ORDERED: METOCLOPRAMIDE HCL 10 MG/2 ML VIAL IV PUSH ONE (16:30)
[2017-03-06] MEDS ORDERED: KETOROLAC TROMETHAMINE 30 MG/ML (IVP) VIAL IVP ONE (16:30)
[2017-03-06 16:46] LABS: AUTOMATED NEUTROPHIL # 4.8 TH/MM3 (1.8-7.7); BASOPHIL % 0.8 % (0.0-2.0); HEMATOCRIT 36.5 % (35.0-46.0); HEMO FLAGS DIFF FINAL; LYMPH % 11.4 % (9.0-44.0); LYMPHOCYTE # 0.7 TH/MM3 (1.0-4.8); MEAN CELL VOLUME 85.5 FL (80.0-100.0); MEAN CORPUSCULAR HEMOGLOBIN 28.2 PG (27.0-34.0); MEAN CORPUSCULAR HGB CONC 32.9 % (32.0-36.0); MONO % 2.8 % (0.0-8.0); PLATELET COUNT 203 TH/MM3 (150-450); RED BLOOD COUNT 4.26 MIL/MM3 (4.00-5.30); RED CELL DISTRIBUTION WIDTH 12.6 % (11.6-17.2); WHITE BLOOD COUNT 5.7 TH/MM3 (4.0-11.0)
[2017-03-06 16:54] LABS: CHLORIDE 104 MEQ/L (98-107); POTASSIUM 4.5 MEQ/L (3.5-5.1); SODIUM (NA) 138 MEQ/L (136-145)
[2017-03-06 16:58] LABS: ANION GAP 8 MEQ/L (5-15); BICARBONATE 25.9 MEQ/L (21.0-32.0); BLOOD UREA NITROGEN 9 MG/DL (7-18)
[2017-03-06 17:01] LABS: ALT (GPT) 31 U/L (10-53); AST (GOT) 36 U/L (15-37); GLOMERULAR FILTRATION RATE 73 ML/MIN (>89)
[2017-03-06 17:03] LABS: TOTAL BILIRUBIN ADULT 0.4 MG/DL (0.2-1.0)
[2017-03-06 17:04] LABS: ALKALINE PHOSPHATASE 95 U/L (45-117)
--- NOTE | 2017-03-06 17:27 | RADHPO ---
EXAM DATE/TIME: 03/06/2017 16:48 [facility] COMPARISON: No previous studies available for comparison. INDICATIONS : Severe abdominal pain with history of gastroparesis. ORAL CONTRAST: No oral contrast ingested. RADIATION DOSE: 18.95 CTDIvol (mGy) MEDICAL HISTORY : Gastroparesis. Hypertension. Diabetes, renal failure SURGICAL HISTORY : Renal transplant, pancreatic transplant ENCOUNTER: Initial ACUITY: 1 day PAIN SCALE: 10/10 LOCATION: Bilateral upper quadrant TECHNIQUE: Volumetric scanning of the abdomen and pelvis was performed. Using automated exposure control and adjustment of the mA and/or kV according to patient size, radiation dose was kept as low as reasonably achievable to obtain optimal diagnostic quality images. FINDINGS: Examination of the lung bases demonstrates no abnormality. No pleural fluid is identified. No pulmona ry nodules are present. The liver and spleen are normal in size and no focal defects are identified. The gallbladder is absent. The pancreas demonstrates normal contour without evidence of mass or ducta l dilatation. The adrenal glands are unremarkable. There are small atrophic kidneys in this patient w ith a transplant in the right iliac fossa. Prominent vascular calcification is present. No abnormally enlarged lymph nodes are identified. There is a possible right adnexal mass measuring 3.8 x 4.0 CM. Is seen adjacent to the sigmoid colon. There is prominent fluid in endometrial cavity as well. The left ovary is upper limits of normal in size. No free fluid is identified. CONCLUSION: 1. No evidence of acute abdominal or pelvic process. No masses are identified. 2. Transplant in the right iliac fossa 3. Prominent right ovary versus right adnexal mass. Ultrasound examination is recommended if clinical ly indicated. Dashawn Landon MD on March 06, 2017 at 17:15 Board Certified Radiologist. This report was verified electronically.
[2017-03-06] MEDS ORDERED: HYDROmorphone HCL PF 2 MG/ML VIAL IV PUSH ONE (18:00)
[2017-03-06] MEDS ORDERED: REGL10TA5 PO (18:23)
[2017-03-06 18:33] VITALS: BP 134/79; PULSE 71; RESP 15; O2SAT 97
== END 2017-03-06 19:01 | disposition left against medical advice (07) ==
LOC: PHED 15:50
DX: R10.9 Unspecified abdominal pain (principal); K31.84 Gastroparesis; E11.9 Type 2 diabetes mellitus without complications; I10 Essential (primary) hypertension; E78.00 Pure hypercholesterolemia, unspecified; Z94.0 Kidney transplant status
CPT/HCPCS: 74000; 74176; 80053; 83605; 83690; 85025; 85610; 85730; 96361; 96374; 96375; 99284; J1170; J1200; J1885; J2405; J2765; J7030